=== PATIENT | female | born 1990 | race Hispanic/Latino ===

== ENCOUNTER 2019-10-17 10:03 | Inpatient (IN) | payer OTHER ==
[2019-10-17] MEDS ORDERED: miSOPROStoL 100 MCG TAB ONE (16:21)
[2019-10-17] MEDS ORDERED: Ringers Lactate 1,000 ML IV ONE (16:22)
[2019-10-17] MEDS ORDERED: Ringers Lactate 1,000 ML IV PRN (17:35)
[2019-10-17] MEDS ORDERED: PROMETHAZINE INJ 25 MG/ML AMP IM PRN (17:35)
[2019-10-17] MEDS ORDERED: CARBOPROST TROME 250 MCG/ML IM PRN (17:35)
[2019-10-17] MEDS ORDERED: BUTORPHANOL 1 MG/ML INJ IV PRN (17:35)
[2019-10-17] MEDS ORDERED: METHYLERGONOVINE 0.2MG/ML AMP IM PRN (17:35)
[2019-10-17 17:58] LABS: Absolute Lymphocytes (CBC) 1.4 K/uL (0.7-4.9); Basophils % 0.3 % (0-1.3); Hematocrit 34.1 % (36.0-45.0); Lymphocytes % 18.3 % (15.3-44.8); MPV 8.4 fL (7.6-11.3); RBC Red Blood Cell Count 3.73 M/uL (3.86-4.86)
[2019-10-17] MEDS ORDERED: OXYTOCIN/LR 20 UNIT/1,000 ML BAG IV SCH (18:00)
[2019-10-17] MEDS ORDERED: Ringers Lactate 1,000 ML IV SCH (18:00)
[2019-10-17 18:34] VITALS: BMI 39.1
[2019-10-17 19:37] LABS: Urine Appearance CLEAR; Urine Bilirubin NEGATIVE (NEG); Urine Blood NEGATIVE (NEG); Urine Color YELLOW; Urine Glucose 2+ (NEG); Urine Protein NEGATIVE (NEG); Urine Specific Gravity 1.025 (1.005-1.030); Urine Urobilinogen 0.2 mg/dL (0.2-1.0)
[2019-10-17 19:38] LABS: Urine Microscopic Reflex NO UMIC
--- NOTE | 2019-10-17 21:51 | PREOPHP ---
Date of Admission: 10/17/2019 This is 28-year-old 5, para 3, 39 weeks and 3 days for Cytotec assistance with labor inductio n. 1.5 cm, vertex, -1 to -2 station. FHT is normal, reactive. Rh positive, immune to Rubella. Neg ative beta strep screen full. Cytotec and labor talk given, 50 mcg and started every 6 hours for x3 if needed. Full discussion with the patient. BROCK/DERRELL Voice ID: [id number]
[2019-10-17 22:59] LABS: RPR (Rapid Plasma Reagin) NON-REACT (NON-REACT)
[2019-10-18] MEDS ORDERED: CARBOPROST TROME 250 MCG/ML IM ONE (01:46)
[2019-10-18] MEDS ORDERED: METHYLERGONOVINE 0.2MG/ML AMP IM ONE (01:49)
[2019-10-18] MEDS ORDERED: ROPIVACAINE HCL 100 ML IV PRN (06:49)
[2019-10-18] MEDS ORDERED: FENTANYL CITR 100 MCG/2 ML IV ONE (06:49)
--- NOTE | 2019-10-18 07:05 | PN ---
This 5, para 3, now at 39 weeks and 4 days. Had Cytotec 50 mcg 1 time yesterday afternoon an d then 6 hours later 25 mcg, a quarter of a tablet. With that she has established in excellent labor pattern, is annie every 1 minute. FHTs are normal reactive. Vital signs are stable. She is now 3.5 to 4 cm, 90% to 100% effaced, vertex, -1 station. Rupture of membranes, clear fluid. She jama s had Stadol 1 mg IV, is requesting epidural. We will begin hydration and contact anesthesia departm ent and expect rapid progress from this point forward. BROCK/DERRELL Voice ID: [id number] Report ID: [id number]
[2019-10-18] MEDS ORDERED: Oxycodone HCl/Acetaminophen 1 TAB TAB PO PRN (07:10)
[2019-10-18] MEDS ORDERED: DIPHENHYDRAMINE 25 MG TAB/CAP PO PRN (07:10)
[2019-10-18] MEDS ORDERED: BISACODYL 10 MG RECTAL SUPP RECT PRN (07:10)
[2019-10-18] MEDS ORDERED: DOCUSATE NA/SENNA CONC 1 TAB PO PRN (07:10)
[2019-10-18] MEDS ORDERED: ACETAMINOPHEN 500 MG TAB PO PRN (07:10)
[2019-10-18] MEDS: Oxycodone HCl/Acetaminophen 1 TAB TAB PO PRN ×2 (07:15→20:45)
[2019-10-18] MEDS ORDERED: OXYTOCIN/LR 20 UNIT/1,000 ML BAG IV SCH (08:00)
[2019-10-18] MEDS: IBUPROFEN 600 MG TAB PO PRN ×2 (11:40→18:20)
[2019-10-19] MEDS: IBUPROFEN 600 MG TAB PO PRN (00:05)
[2019-10-19] MEDS: Oxycodone HCl/Acetaminophen 1 TAB TAB PO PRN (05:03)
[2019-10-19 07:35] VITALS: BP 114/60; TEMP 97.5
--- NOTE | 2019-10-19 09:34 | DS ---
Date of Discharge: 10/19/2019 28-year-old multiparous female, 5, para 3, 39 weeks and 4 days. Delivered of a 7 pound estim ated male, Apgars 9 and 10. Cytotec for labor induction at 4 cm, rupture of membranes, clear fluid. Patient went rapidly to complete. Precipitous but controlled delivery. No episiotomy. No lacerati on. Schultze delivery of the placenta, which was inspected and noted to be intact and normal. 250 c c blood loss. Rh positive, immune to Rubella. Negative beta strep screen. ; afebrile, am bulating and voiding. Lochia is normal. She will be dismissed this morning, to report back to [place] in 6 weeks for followup, to report any temperature elevation of 100 degrees or greater, severe p ain, heavy bleeding, or any other type of abnormality, request tramadol on dismissal. She is bottle- feeding. Tdap administration suggested. She says she thinks she had it during the . Final Diagnoses: Term intrauterine . Cytotec for labor induction. Precipitous but control led vaginal delivery. BROCK/MODL Voice ID: [id number] Report ID: [id number]
--- NOTE | 2019-10-19 09:37 | OP ---
Surgeon: Dakota Vickers MD A 28-year-old 5, para 3, 39 weeks, 3 days, had Cytotec 50 mcg initially inserted yesterday af ternoon, 6 hours later 25 mcg of Cytotec tablet, 2 tablets only. Patient went to a very active labor pattern. She was given 1 mg of Stadol IV, 25 mg of Phenergan IM. This morning, she was 3 to possib ly 4, 90% effaced, vertex, -1 station. Rupture of membranes, clear fluid. Beni every 1 minut e. Requesting epidural. Hydration was started. Anesthesia Department was notified. However, for t he next 20 minutes, patient delivered precipitously, but controlled of an estimated 7-pound male infa nt, Apgars 9 and 10. No episiotomy. No laceration. Schultze delivery of the placenta, which was in spected and noted to be intact and normal. Less than 250 mL blood loss. Rh positive, immune to Rube lla. Negative beta strep screen. Tolerated all procedures well. Final Diagnoses: Term intrauterine . Cytotec for cervical ripening, labor induction, vagin al delivery. NBC/MODL Voice ID: [id number] Report ID: [id number]
[2019-10-21 05:13] LABS: HBsAG Nonreactive (Nonreactive)
== END 2019-10-19 08:50 | disposition home or self-care (01) | DRG 807 ==
LOC: 2ND-WC 16:16
PROVIDERS: ADMIT Specialist; ATTEND Specialist
PROC: 10E0XZZ Delivery of Products of Conception, External Approach (ICD-10-PCS; principal; 2019-10-18)
PROC: 3E0P7VZ Introduction of Hormone into Female Reproductive, Via Natural or Artificial Opening (ICD-10-PCS; 2019-10-18)
DX: O62.3 Precipitate labor (principal); Z37.0 Single live birth; Z3A.39 39 weeks gestation of pregnancy
CPT/HCPCS: 36415; 81003; 85025; 86592; 86901; 87340; J0595; J2210; J2550; J2590; J7120